=== PATIENT | female | born 1955 | race Caucasian/White ===

== ENCOUNTER → 2016-04-24 17:21 | Outpatient (CLI) | payer BC ==
[2014-03-01 15:42] VITALS: BMI 25.0
[~2016-04-24 17:21] MED LIST: AMBIEN10 MG PO; BAYER CHEWABLE81 MG PO; PLAVIX75 MG PO; PRAVACHOL20 MG PO; PRAVACHOL40 MG PO; SYNTHROID50 MCG PO; TOPROL XL25 MG PO; TRAZODONE HCL150 MG PO; WELLBUTRIN SR150 MG PO
== END | disposition home or self-care (01) ==
LOC: D.MAMMO 04-04 08:30
DX: Z12.31 Encounter for screening mammogram for malignant neoplasm of breast (principal)

== ENCOUNTER → 2016-05-09 14:39 | Outpatient (CLI) | payer BC ==
[2014-03-01 15:42] VITALS: BMI 25.0
== END | disposition home or self-care (01) ==
LOC: D.MAMMO 10:45 → D.US 05-28 14:30 → D.MAMMO 05-28 15:00
DX: R92.8 Other abnormal and inconclusive findings on diagnostic imaging of breast (principal)

== ENCOUNTER → 2016-05-19 09:51 | Outpatient (CLI) | payer BC ==
[2014-03-01 15:42] VITALS: BMI 25.0
== END | disposition home or self-care (01) ==
LOC: D.US 09:51
DX: N63 Unspecified lump in breast (principal)

== ENCOUNTER 2016-10-15 16:24 | Emergency (ER) | payer BC ==
[2014-03-01 15:42] VITALS: BMI 25.0
== END 2016-10-15 18:09 | disposition home or self-care (01) ==
LOC: D.ER 16:24
DX: R53.1 Weakness (principal); I10 Essential (primary) hypertension; E11.9 Type 2 diabetes mellitus without complications; Z79.4 Long term (current) use of insulin; I44.0 Atrioventricular block, first degree; I45.10 Unspecified right bundle-branch block

== ENCOUNTER 2016-10-20 18:27 | Emergency (ER) | payer SELFPAY ==
[2014-03-01 15:42] VITALS: BMI 25.0
[2016-10-20 19:29] LABS: BASOPHILS 0.2 % (0-2); EOSINOPHILS 2.6 % (0-7); HEMATOCRIT 39.7 % (36.0-48.0); HEMOGLOBIN 13.6 g/dL (12-16); IMMATURE GRANULOCYTES 0.3 % (0-5); LYMPHOCYTES 30.7 % (15-50); MCH 29.9 pg (26.0-34.0); MCHC 34.3 g/dL (31.0-37.0); MCV 87.3 fL (80.0-100.0); MEAN PLATELET VOLUME 10.5 fL (7.4-10.4); MONOCYTES 6.6 % (2-11); NEUTROPHILS 59.6 % (40-80); PLATELET COUNT 300 10x3/uL (130-400); RBC 4.55 10x6/uL (4.00-5.40); RDW 13.5 % (11.5-14.5)
[2016-10-20 20:16] LABS: ALBUMIN 3.9 g/dL (3.4-5.0); ALKALINE PHOSPHATASE 77 U/L (46-116); ALT (SGPT) 39 U/L (10-68); BILIRUBIN - TOTAL 0.21 mg/dL (0.2-1.3); CALC OSMOLALITY 278 mosm/kg (275-300); CALCIUM 8.9 mg/dL (8.5-10.1); CARBON DIOXIDE 24.7 mmol/L (21.0-32.0); CHLORIDE - SERUM 104 mmol/L (98-107); CKMB 0.4 U/L (0.0-3.6); CREATINE KINASE 54 UL (21-215); CREATININE - SERUM 0.7 mg/dL (0.6-1.3); GLUCOSE 89 mg/dL (74-106); POTASSIUM - SERUM 4.4 mmol/L (3.5-5.1); PROTEIN - SERUM 6.7 g/dL (6.4-8.2); SODIUM 140 mmol/L (136-145); TROPONIN-I < 0.017 ng/mL (0.000-0.060); UREA NITROGEN 15 mg/dL (7-18); eGFR NON AFRICAN AMERICAN 90 mL/min (90-120)
== END 2016-10-20 21:55 | disposition home or self-care (01) ==
LOC: D.ER 18:27
PROVIDERS: Emergency Medicine
DX: R07.9 Chest pain, unspecified (principal); R09.89 Other specified symptoms and signs involving the circulatory and respiratory systems; Z95.5 Presence of coronary angioplasty implant and graft; F17.200 Nicotine dependence, unspecified, uncomplicated; R94.31 Abnormal electrocardiogram [ECG] [EKG]

== ENCOUNTER 2017-06-22 12:30 | Emergency (ER) | payer BC ==
[2014-03-01 15:42] VITALS: BMI 25.0
== END 2017-06-22 14:11 | disposition home or self-care (01) ==
LOC: D.ER 12:30
DX: S00.91XA Abrasion of unspecified part of head, initial encounter (principal); S60.512A Abrasion of left hand, initial encounter; S80.212A Abrasion, left knee, initial encounter; S80.211A Abrasion, right knee, initial encounter; W01.0XXA Fall on same level from slipping, tripping and stumbling without subsequent striking against object, initial encounter; Y93.89 Activity, other specified; Y92.410 Unspecified street and highway as the place of occurrence of the external cause; M79.1 Myalgia; F17.200 Nicotine dependence, unspecified, uncomplicated

== ENCOUNTER → 2019-02-25 08:33 | Outpatient (CLI) | payer BC ==
[2014-03-01 15:42] VITALS: BMI 25.0
== END | disposition home or self-care (01) ==
LOC: D.MRI 08:33
PROVIDERS: ATTEND Orthopaedic Surgery
DX: M75.121 Complete rotator cuff tear or rupture of right shoulder, not specified as traumatic (principal)